=== PATIENT | female | born 1965 | race Caucasian/White ===

== ENCOUNTER 2016-09-29 09:58 | Emergency (ER) | payer MEDICARE, OTHER ==
[~2016-09-29] VITALS: Ht 158.1 cm; Wt 109.1 kg
[~2016-09-29 09:58] MED LIST: ALBU17AE22 INH; CHOL400T41 PO; MILN1TAB PO; PRAM0.5T PO; [UNRECOGNIZED DRUG - CODE] PO; omnaris
[2016-09-29 10:02] VITALS: BP 139/93; PULSE 112; RESP 15; O2SAT 94
--- NOTE | 2016-09-29 10:10 | ED.REPORT ---
HPI-General Illness Date of Service Sep 29, 2016 ED Provider: Dr. Ledezma Pt is a 50 year old female with a hx of fibromyalgia, HTN and asthma presenting to the ED complaining of a fever and severe body aches onset yesterday around 1100. Associated symptoms include chills, mild frontal headache, cough, runny nose, neck pain (chronic) but no neck stiffness, vomiting, and diarrhea. Denies rash or dysuria. The pt is bothered most by the body aches and the chills. She does state that she was around a child with a severe cough recently. Nursing Notes Stated Complaint: BODY ACHES,FEVER,FROM Chief Complaint: General Complaint Nursing Notes Reviewed: Yes Allergies: Coded Allergies: hydrocodone bitartrate (Verified Allergy, Unknown, 09/29/16) TAPE (Verified Adverse Reaction, Unknown, 09/29/16) latex (Verified Adverse Reaction, Unknown, 09/29/16) Uncoded Allergies: Muscle Relaxers (Adverse Reaction, Intermediate, 11/24/11) Causes pt's HR to drop a lot. STEROIDS (Adverse Reaction, Unknown, 09/29/16) Scheduled ([omnaris]) 2 NA DAILY CHOLECALCIFEROL-Expunged Drug, Do Not Renew! (VITAMIN D-Expunged Drug, Do Not Renew!) 400 Unit Tablet 4,000 UNIT PO DAILY Cephalexin (Keflex) 500 Mg Capsule 500 MG PO QID Milnacipran Hcl (Savella) 1 Each Tab.ds.pk 100 MG PO BID Pramipexole-Expunged Drug, Do Not Renew! (Mirapex-Expunged Drug, Do Not Renew!) 0.5 Mg Tab 0.5 MG PO HS Vancomycin (Vancomycin) 125 Mg Capsule 125 MG PO QID Scheduled PRN Albuterol-Expunged Drug, Do Not Renew! (Albuterol-Expunged Drug, Do Not Renew!) 8.5 Gm Aero 8.5 GM INH Q4-6H PRN PRN 2 puffs Ondansetron ODT (Zofran ODT) 4 Mg Tablet 4 MG PO Q4H PRN PRN For Nausea oxyCODONE-Acetaminophen 5-325 mg (oxyCODONE-Acetaminophen 5-325 mg) 1 Each Tablet 1-2 TAB PO Q6H PRN PRN For Pain Miscellaneous Medications hydroMORPHone (Dilaudid) 4 Mg/Ml Soln 4 MG PO Takes rarely General Time Seen by MD: 10:10 Chief Complaint Fever Hx Obtained From: Patient Arrived By: Walk-in Sudden in Onset?: No Onset Occurred: Yesterday Symptom Duration: Since onset Location: : Head: Neck Quality: Painful Severity: Current: Moderate Severity: Maximum: Severe Recent Healthcare: No recent doctor visit, No recent hospitalization Similar Sx Previous: No Past Medical History Past Medical History Fibromyalgia Reports: Asthma, Hypertension Past Surgical History c sections, gastric bypass, doreen, pancreatic cyst drained Smoking History Current Every Day Smoker Social History Alcohol Use: "Social" Drug Use: Denies drug use Ambulatory Status Independent Review of Systems Full Review of Systems Constitutional: Reports: Chills, Fever Respiratory: Reports: Non-productive cough GI: Reports: Diarrhea, Nausea, Vomiting Female: Denies: Dysuria Musculoskeletal: Reports: Extremity pain, Neck pain Skin: Denies Rash Neurologic: Reports: Headache Complete sys rev & neg: except as marked. Physical Exam Vital Signs Vital Signs Date Time Temp Pulse Resp B/P Pulse Ox O2 Delivery O2 Flow Rate FiO2 09/29/16 13:31 85 16 107/43 97 Room Air 09/29/16 12:56 36.9 84 14 107/47 96 Room Air 09/29/16 11:40 37.8 97 15 93/49 96 Room Air 09/29/16 10:02 38.6 112 15 139/93 94 Room Air Initial VS: Reviewed General/Constitutional: Well-developed, Well-nourished Head / Eyes: Atraumatic, Normocephalic, PERRL ENT: Mucous membranes moist, Conjunctiva normal, No scleral icterus Respiratory: Breath sounds normal, Clear to auscultation, No respiratory distress Cardiovascular: Regular rate & rhythm, Heart sounds normal, Intact distal pulses Abdomen / GI: Soft, Non-tender, No guarding, No rebound, No distention Extremities: Vascular intact, Neuro intact, No swelling, No tenderness Skin: Warm, Dry, No cyanosis Neurologic: Alert, Oriented, Nonfocal Psychiatric: Mood/affect normal, Behavior normal, Normal thought content Neck: Atraumatic, Supple, No meningismus, Full range of motion, No adenopathy Meningeal Signs / ROM: Negative: Nuchal rigidity present Interpretation & Diagnostics Interpretation & Diagnostics: Positive for C. Diff Lab Results Interpretation Result Diagram: 09/29/16 1040 09/29/16 1040 Test 09/29/16 10:40 09/29/16 11:26 White Blood Count 10.1th/mm3 (3.8-10.1) Red Blood Count 4.62mil/mm3 (3.90-5.20) Hemoglobin 13.5g/dL (12.0-15.6) Hematocrit 40.9% (35.0-46.0) Mean Corpuscular Volume 88.5fL (81-100) Mean Corpuscular Hemoglobin 29.2pg (27.0-35.0) Mean Corpuscular Hemoglobin Concent 33.0% (32.0-37.0) Red Cell Distribution Width 14.4% (12.3-15.4) Platelet Count 197bil/L (150-400) Neutrophils (%) (Auto) 86.3% (40-74) Lymphocytes (%) (Auto) 7.9% (14-46) Monocytes (%) (Auto) 5.2% (4-12) Eosinophils (%) (Auto) 0.2% (0-5) Basophils (%) (Auto) 0.2% (0-3) Sodium Level 138mEq/L (134-144) Potassium Level 3.3mEq/L (3.5-5.2) Chloride Level 99mEq/L (97-108) Carbon Dioxide Level 24mmol/L (18-29) Blood Urea Nitrogen 13mg/dL (6-24) Creatinine 0.87mg/dL (0.57-1.00) Estimat Glomerular Filtration Rate 99mL/min (>59) Glucose Level 119mg/dL (60-99) Lactic Acid Level 1.0mmol/L (0.4-2.0) Calcium Level 8.7mg/dL (8.5-10.1) Magnesium Level 1.8mg/dL (1.6-2.6) Total Bilirubin 0.3mg/dL (0.0-1.2) Aspartate Amino Transf (AST/SGOT) 14U/L (0-50) Alanine Aminotransferase (ALT/SGPT) 11U/L (0-32) Alkaline Phosphatase 91U/L (25-150) Total Creatine Kinase 72U/L (21-215) Troponin T 0.010ug/L (0.0-0.011) Total Protein 6.8g/dL (6.4-8.4) Albumin 3.6g/dL (3.4-5.0) Procalcitonin 0.12ng/mL (0.00-0.08) Urine Color Yellow (YELLOW) Urine Appearance Cloudy (CLEAR,HAZY) Urine pH 7.0 (5.0-8.0) Urine Specific Elliott 1.010 (1.003-1.035) Urine Protein 30mg/dL (NEG,TRACE) Urine Glucose (UA) Negativemg/dL (NEGATIVE) Urine Ketones Negativemg/dL (NEGATIVE) Urine Occult Blood Moderate (NEGATIVE) Urine Nitrite Positive (NEGATIVE) Urine Bilirubin Small (NEGATIVE) Urine Ictotest Negative (Negative) Urine Urobilinogen Normalmg/dL (NORMAL) Urine Leukocyte Esterase Small (NEGATIVE) Urine RBC 0-2/hpf (0-2) Urine WBC 11-50/hpf (0-5) Urine Epithelial Cells Moderate/hpf (NONE-MOD) Urine Crystals None seen (NONE SEEN) Urine Bacteria Many/hpf (NONE-FEW) Urine Hyaline Casts None/lpf (NONE) Urine Granular Casts None seen (NONE SEEN) Urine Waxy Casts None seen (NONE SEEN) Urine Red Blood Cell Casts None seen (NONE SEEN) Urine White Blood Cell Casts None seen (NONE SEEN) Urine Mucus None seen (None Seen) Urine Trichomonas None seen (NONE SEEN) Urine Yeast None (NONE SEEN) Urinalysis Comment None Urine Culture Reflexed Indicated ECG Interpretation Time: 11:05 Interpreted by: ED physician Normal ECG Interpretation: Normal ECG w/ rate of... (95) X-Ray Chest Interpretation Chest Xray Interpretation: IMPRESSION: No acute disease, source of current symptoms is not seen. Dictated by: Aayush Russo M.D. on 09/29/2016 at 11:50 View: Portable, 1 view Interpretation / Wet Read by: Interpret - Radiologist Re-Eval/Medical Decision Med Decision/Clinical Course Patient presents with fever diffuse myalgias diarrhea occasional vomiting mild cough and a mild frontal headache. Her exam is inconsistent with meningitis. Her laboratory studies are overall reassuring with the exception of the stool PCR which is positive for C. difficile. Patient is overall well appearing, she did have a fever. There were some recorded low blood pressures however her vital signs have otherwise normalized, and on further examination the patient was having blood pressure taken with a loosely fitting forearm. Upon establishing a normal blood pressure cuff on the upper arm, her blood pressure was a systolic of 108. She has not had persistent tachycardia, her fever has come down. She is in a moderate amount of diffuse pain and the question of whether she had rhabdomyolysis or myositis came to question. Her total CK and troponin are negative. This seems unlikely. Overall she is not exhibiting signs of severe sepsis or septic shock. Additionally she has greater than 11-50 white cells in her urine without specific signs of urinary tract infection. However, given the significant fever, She will be discharged and treated with both Keflex and oral vancomycin. She will be discharged with Percocet and Zofran as well. Return and follow-up precautions given. Time of Eval: 11:48 Patient Status: Condition improved Re-Evaluation/Progress Note: Pt pain slightly improved. Discussed urine results. Pt reports hx of UTI post surgery, but denies frequent hx. She states that she did not have dysuria when she had a bladder infection. Time of Eval: 12:50 Patient Status: Condition improved Re-Evaluation/Progress Note: Discussed positive C. Diff results and plan for discharge. Pt understands and agrees with plan. Counseled Regarding: Diagnosis, Lab results, Need for follow-up, When/why to return to ED Discharge & Departure Primary Impression: C. difficile colitis Additional Impression: UTI (urinary tract infection) Urinary tract infection type: site unspecified Hematuria presence: without hematuria Qualified Code: N39.0 - Urinary tract infection, site not specified Disposition: Home Discharge Condition All VS Reviewed: Yes Condition: Improved Additional Instructions: While in the ER you had extensive testing to determine the etiology of your fever and body aches. Your stool came back positive for Clostridium difficile, a common cause of fever and diarrhea. This will be treated with oral vancomycin , an antibiotic. This stool infection is highly contagious, be sure to wash your hands after each use of the restroom, do not share linens or towels with other people. Additionally, your urinalysis shows extensive signs of infection , this will be treated with Keflex. Clinically, there are no signs or symptoms at this point of meningitis,also your chest x-ray was normal. Your laboratory studies were reassuring overall. Use Percocet and Zofran in addition for pain and nausea. Cardiovascular regular doctor in the morning for repeat evaluation. Return to the ER as needed for severe pain, lethargy, or other concerns. Referrals: Shaw Rascon MD (PCP) Anneliese Perry MD Attestation Portions of this note were transcribed by Raegan Espinoza. I, Dr. Ledezma personally performed the history, physical exam and medical decision-making; I reviewed and confirmed the accuracy of the information in the transcribed note. Signed by: Danial Spencer, 09/29/2016 at 1307. copies to: Anneliese Perry MD; Shaw Rascon MD, Timothy S DO Sep 29, 2016 10:10 RAEGAN ESPINOZA Sep 29, 2016 10:30
[2016-09-29] MEDS ORDERED: 0.9% Sodium Chloride 1,000 ML IV ONE ×2 (10:31→10:35)
[2016-09-29] MEDS ORDERED: Ketorolac 15 mg/mL Inj IVPUSH ONE ×2 (10:35→12:45)
[2016-09-29 10:56] LABS: BASOPHILS % (AUTO) 0.2 % (0-3); EOSINOPHILS % (AUTO) 0.2 % (0-5); MONOCYTES % (AUTO) 5.2 % (4-12); Mean Corpuscular Hemoglobin 29.2 pg (27.0-35.0); Mean Corpuscular Volume 88.5 fL (81-100); NEUTROPHILS % (AUTO) 86.3 % (40-74); Platelet Count 197 bil/L (150-400)
[2016-09-29 11:40] VITALS: BP 93/49; PULSE 97; RESP 15; O2SAT 96
[2016-09-29 11:42] LABS: APPEARANCE,URINE CLOUDY (CLEAR,HAZY); COLOR,URINE YELLOW (YELLOW); OCCULT BLOOD,URINE MODERATE (NEGATIVE)
[2016-09-29 11:43] LABS: UROBILINOGEN,URINE NORMAL (NORMAL)
[2016-09-29 11:43] LABS: TROPONIN T 0.01 ug/L (0.0-0.011)
[2016-09-29 11:44] LABS: ICTOTEST,URINE NEGATIVE (Negative)
[2016-09-29] MEDS ORDERED: HYDROmorphone 0.5 mg/0.5 mL iSecure Syringe IVPUSH PRN (11:50)
[2016-09-29] MEDS ORDERED: Ondansetron 2 mg/mL 2 mL Inj ONE (11:51)
--- NOTE | 2016-09-29 11:52 | DRSVH ---
PROCEDURE: X-RAY CHEST ONE VIEW, PORTABLE ([id number]) INDICATIONS: fever, cough TECHNIQUE: One view of the chest was acquired. COMPARISON: None. FINDINGS: Surgical changes and devices: None. Lungs and pleura: No pleural effusions or pneumothorax. Lungs are clear. Mediastinum: Mediastinal contours appear normal. Heart size is normal. Bones and chest wall: No suspicious bony lesions. Overlying soft tissues appear unremarkable. IMPRESSION: No acute disease, source of current symptoms is not seen. Dictated by: Aayush Russo M.D. on 09/29/2016 at 11:50 Approved by: Aayush Russo M.D. on 09/29/2016 at 11:51
[2016-09-29 11:55] LABS: Magnesium 1.8 mg/dL (1.6-2.6)
[2016-09-29] MEDS ORDERED: Ondansetron 2 mg/mL 2 mL Inj IVPUSH PRN (12:05)
[2016-09-29 12:56] VITALS: BP 107/47; PULSE 84; RESP 14; O2SAT 96
[2016-09-29] MEDS ORDERED: VANC125C10 PO (13:04)
[2016-09-29] MEDS ORDERED: ONDA4TAB9 PO (13:04)
[2016-09-29] MEDS ORDERED: OXYC1TAB24 PO (13:04)
[2016-09-29] MEDS ORDERED: CEPH-512 PO (13:04)
[2016-09-29] MEDS ORDERED: Vancomycin 125 mg Oral Capsule PO ONE (13:10)
[2016-09-29 13:31] VITALS: BP 107/43; PULSE 85; RESP 16; O2SAT 97
[2016-09-29 13:45] VITALS: BP 107/43; PULSE 85; RESP 16; O2SAT 97
== END 2016-09-29 13:46 | disposition home or self-care (01) ==
LOC: SED 09:58
DX: A04.7 Enterocolitis due to Clostridium difficile (principal); N39.0 Urinary tract infection, site not specified; B96.1 Klebsiella pneumoniae [K. pneumoniae] as the cause of diseases classified elsewhere; B34.9 Viral infection, unspecified; I10 Essential (primary) hypertension; F17.200 Nicotine dependence, unspecified, uncomplicated; Z79.899 Other long term (current) drug therapy; Z88.5 Allergy status to narcotic agent; Z91.040 Latex allergy status
CPT/HCPCS: 36415; 71010; 80053; 81000; 82550; 83605; 83735; 84145; 84484; 85025; 87040; 87077; 87086; 87088; 87186; 87507; 87633; 93005; 96361; 96374; 96375; 96376; 99285; G0463; J1170; J1885; J2405; J7030